=== PATIENT | male | born 2000 | race Caucasian/White ===

== ENCOUNTER 2019-04-27 13:12 | Emergency (ER) | payer OTHER ==
[~2019-04-27] VITALS: Ht 182.9 cm; Wt 83.9 kg
[2019-04-27] MEDS ORDERED: ZITHROMAX500 MG PO (15:40)
== END 2019-04-27 16:00 | disposition home or self-care (01) ==
LOC: ER 13:12
DX: F41.8 Other specified anxiety disorders (principal); R00.2 Palpitations

== ENCOUNTER 2023-03-27 17:37 | Emergency (ER) | payer OTHER ==
[~2023-03-27] VITALS: Ht 177.8 cm; Wt 95.3 kg
[~2023-03-27 17:37] MED LIST: ZITHROMAX500 MG PO
== END 2023-03-27 21:20 | disposition home or self-care (01) ==
LOC: ER 17:37
DX: J06.9 Acute upper respiratory infection, unspecified (principal)